=== PATIENT | male | born 1965 | race Caucasian/White ===

== ENCOUNTER 2020-07-26 15:25 | Emergency (ER) | payer MEDICARE, MEDICAID, SELFPAY ==
[2020-07-26 15:35] VITALS: BP 153/77; BP 178/104; PULSE 102; PULSE 90; RESP 16; O2SAT 95; O2SAT 96; BMI 29.5
[2020-07-26 15:43] VITALS: TEMP 36.8
--- NOTE | 2020-07-26 15:54 | ED_ITS ---
HPI - Overdose General Chief Complaint: Overdose Stated Complaint: overdose/narcan given Time Seen by Provider: 07/26/20 15:51 History of Present Illness HPI Narrative: This is a 54 years old man with history of substance abuse found unresponsive in the car he was given Narcan by EMS he arrived awake and alert complaining of nausea complaint: accidental overdose Onset (ago): minute(s) (30 minutes) Related Data Allergies Allergy/AdvReac Type Severity Reaction Status Date / Time No Known Allergies Allergy Unverified 11/22/19 14:47 [No Known Allergies*] Review of Systems Review of Systems: Yes all other systems are reviewed and are negative Cardiovascular: Cardiovascular: Reports no additional cardiovascular complaints Respiratory: Respiratory: Reports no additional respiratory complaints Psychiatric: Psychiatric: Reports anxiety [facility] Past Medical History [facility] Narrative: opioid abuse Social History Social History Alcohol intake: never Smoking Status: Current every day smoker Use of substances other than those prescribed or required for medical reasons: Yes Substance Use Type: Heroin Advance Directives: No Advance Directives Information Provided: No Physical Exam Vital Signs: Vital Signs: Last Vital Signs Temp 98.2 F 07/26/20 15:43 Pulse 90 07/26/20 15:35 Resp 16 07/26/20 15:35 BP 153/77 H 07/26/20 15:35 Pulse Ox 96 07/26/20 15:35 Body Mass Index 29.5 Const: General: cooperative and anxious Orientation/consciousness: oriented to person, oriented to place, oriented to time and patient oriented x3 HENMT: Head: Yes normal to inspection Eyes: General: appearance normal, both eyes and all related structures Visual Herrmann: normal visual herrmann by confrontation Neck: Neck: Yes normal visual inspection, Yes full ROM and Yes no lymphadenopathy Chest: Chest palpation & inspection: normal inspection of the chest and normal palpation of entire chest wall Resp: Effort & Inspection: normal respiratory effort and able to speak in complete sentences Cardio: Jugular venous distension: no JVD Palpation: normal PMI Rate: regular rate Rhythm: regular rhythm GI: Inspection: Yes normal to inspection Skin: General skin exam: no rashes or lesions noted and elasticity normal Neuro: General: oriented to person, oriented to place, oriented to time and patient oriented x3 Extrem: General: Yes normal to inspection, Yes full ROM and Yes capillary refill normal MDM - Overdose Medical Records Medical records narrative: Patient is awake and alert denies SI denies HI refuses detox at this time we will observe the patient over 1-2 hours if he remains stable will discharge him home with detox list Discharge Plan Discharge Clinical Impression: Drug overdose Patient Disposition: Home, Self-Care Instructions: Narcotic Use Disorder (ED) Interventions: ED Discharge Assessment Last Done: 07/26/20 16:54 Discharge Date/Time: 07/26/20 16:55
[2020-07-26] MEDS: hydrOXYzine HCL 25 MG TABLET PO (16:29)
[2020-07-26] MEDS: cloNIDine HCL 0.1 MG TABLET PO (16:30)
== END 2020-07-26 16:55 | disposition home or self-care (01) ==
LOC: HO.ED 16:22
PROVIDERS: Emergency Provider Emergency Medicine; PCP Physician Assistant Medical
DX: F11.10 Opioid abuse, uncomplicated (principal); T40.1X1A Poisoning by heroin, accidental (unintentional), initial encounter; R40.4 Transient alteration of awareness; Y92.810 Car as the place of occurrence of the external cause; F17.200 Nicotine dependence, unspecified, uncomplicated
CPT/HCPCS: 99283; 99284